=== PATIENT | male | born 1985 | race Caucasian/White ===

== ENCOUNTER 2024-09-02 14:22 | Outpatient (CLI) | payer OTHER, SELFPAY ==
--- NOTE | ~2024-09-02 | MR_ITS ---
MRI of the lumbar spine Clinical History: Back pain Technique: Axial T2-weighted images, and sagittal T1-weighted, T2-weighted, and and T2 fat-sat images were acquired. Findings: There bilateral L5 pars interarticularis defects. No subluxation evident. No acute fracture seen. No bone marrow signal abnormality seen. At L1-L2, L2-L3, L3-L4, L4-L5, intervertebral discs maintain normal signal and position. No disc bulg e or herniation at these levels. There are minimal facet joint degenerative changes. No spinal canal stenosis or neural foraminal narrowing at these levels. At L5-S1, there is minimal disc desiccation without disc bulge or herniation. No spinal canal stenosi s or left neural foraminal narrowing. There is mild to moderate right neural foraminal narrowing. Impression: Bilateral L5 pars interarticularis defects, without subluxation. Mild to moderate right neural foraminal narrowing at L5-S1. Reviewed, dictated and finalized at [facility]. Impression: Bilateral L5 pars interarticularis defects, without subluxation. Mild to moderate right neural foraminal narrowing at L5-S1.
== END 2024-09-02 14:23 | disposition home or self-care (01) ==
LOC: MICIMG 14:24
PROVIDERS: PCP Nurse Practitioner Family; Visit Provider Nurse Practitioner Family
DX: M43.06 Spondylolysis, lumbar region (principal); M48.07 Spinal stenosis, lumbosacral region
CPT/HCPCS: 72148

== ENCOUNTER 2025-02-27 12:09 | Emergency (ER) | payer OTHER, SELFPAY ==
--- OUTSIDE RECORDS SUMMARY | 2025-02-27 12:13 | XMS_ITS | Clinical Summary ---
Author Organization 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 05/08/2023 Annual physical exam 05/02/2022 Acute non-recurrent maxillary sinusitis 05/02/19 Immunizations Immunization Administration Dates Next Due Anthrax 07/22/2008, 8,12/03/2007,11/17 H1N1 Inj Preservative Free 09/03/2009 Hep A, Adult 08/24/2015, 5,04/25/2014,02/04,01/04/2006 Hep B Vaccine 09/22/2007,02/04/2006,01/04/2006 Influenza, Unspecified 03/20/2023,2020,02/07/2020,01/31,03/08/2018,02/02/2017,02/04/2016 ,01/16/2014,01/31/2013,01/12/2012,03/01,02/04/2010,12/23/2007, 8,02/04/2006 Meningococcal MCV4P (Menactra) 12/27/2005 Pfizer SARS-CoV-2 Monovalent Vaccination (12+ Yrs) PURPLE 02/13/2021,01/16/2021 Polio, Unspecified 12/27/2005 Smallpox 11/18/2007 Tdap 03/08/2018,12/27/2005,12/22/2005 Typhoid Inactivated 02/04/2010,06/08/2007 Surgical History Surgery Date Site/Laterality Comments WISDOM TOOTH EXTRACTION Medical History Medical History Date Comments Rotator cuff tear, right Family History Medical History Relation Name Comments Coronary artery disease Father Sonu Garcia Heart attack Father Sonu Garcia Hypertension Father Sonu Garcia Coronary artery disease Father's Brother Relation Name Status Comments Father Sonu Garcia Alive Father's Brother Alive Mother Alive Sister Alive Social History Tobacco Use Types Packs/Day Years Used Date Smoking Tobacco: Never Cigarettes Smokeless Tobacco: Never Tobacco Cessation:Counseling Given: Not Answered PHQ-2 Answer Date Recorded PHQ-2 Total Score (If total score is 3 or more points, staff should administer the PHQ-9) 0 05/08/2023 Sex and Gender Information Value Date Recorded Sex Assigned at Not on file Legal Sex Male 2:44 PM 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 Gender Identity Male 06/20/2022 11:15 AM CDT Sexual Orientation Straight 06/20/2022 11 :15 AM CDT 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 Not on file Not on file [employer] Not on file Not on file Not on file Last Filed Vital Signs Vital Sign Reading Time Taken Comments Blood Pressure 92/60 05/06/2024 10:54 AM [employer]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 Pulse 66 05/06/2024 10:54 AM 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 Temperature - - Respiratory Rate - - Oxygen Saturation 99% 05/06/2024 10:54 AM 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 Inhaled Oxygen Concentration - - Weight 70.3 kg (155 lb) 05/06/2024 10:54 AM 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 Height 170.2 cm (5' 7.01) 05/06/2024 10:[address] Body Mass Index 24.27 05/06/2024 10:54 AM T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 Plan of Treatment Health Maintenance Due Date Last Done Comments HPV Vaccines (1 - 3-dose SCDM series) 11/20/2011 Depression Screening 05/08/2024 05/08/2023 Covid-19 Vaccine (3 - season) 2024 02/13/2021, 01/16/2021 Influenza Vaccine (#1) 2024 , 03/20/2023, 01/16/2021, Additional history exists Regular Well Visit/Exam 18-64 05/06/2025 05/06/2024, 05/08/2023, 05/02/2022 DTaP/Tdap/Td Vaccine (4 - Td or Tdap) 03/08/2028 03/08/2018, 12/27/2005, 12/22/2005 Hepatitis B Screening Completed 09/22/2007 , 02/04/2006, 01/04/2006 Hepatitis C Screening Completed 05/06/2024 Pneumococcal vaccine <65 Aged Out No longer eligible based on patient's age to complete this topic Varicella Vaccines Discontinued Procedures Procedure Name Priority Date/Time Associated Diagnosis Comments HEPATITIS C ANTIBODY Routine 05/06/2024 11:23 AM [employer]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 Need for hepatitis C screening test from Last 3 Months or Most Recently Relevant to Health Maintenance Results * Hepatitis C antibody Blood (05/06/2024 11:23 AM T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) Hep C Ab Nonreactive Nonreactive Comment: Interpretive Data Nonreactive: Antibodies to HCV not detected. Does NOT exclude the possibility of recent exposure to HCV. Equivocal: Equivocal for HCV antibodies. Supplemental molecular testing will be automatically performed to determine infection status in accordance with current CDC screening recommendations. Reactive: Positive for HCV antibodies. This may represent current or past HCV infection. Supplemental molecular testing will be automatically performed to determine current infection status in accordance with current CDC screening recommendations. Interpretive data was last revised on 2019. Blood 05/06/2024 11:2 3 AM T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 05/06/2024 3:44 PM T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 us Nathan Jones MD LAB MICROBIOLOGY - GENER AL ORDERABLES Final Result [facility] [address] Department [place] [address] from Last 3 Months or Most Recently Relevant to Health Maintenance Insurance [facility] CHOICE PLUS [facility] HMO/PPO Address: [address] [address] [place] [address] Care Teams Making Machine Catcher Relationship Specialty Start Date End Date Nathan Jones MD [address] [address] PCP - General Internal Medicine 04/12/22
[2025-02-27 12:17] VITALS: BP 139/82; PULSE 88; RESP 18; TEMP 36.6; O2SAT 98
--- NOTE | 2025-02-27 12:23 | ED_ITS ---
HPI - URI/Sore Throat General Chief Complaint: Upper Respiratory Infection Stated Complaint: Sore throat / Cough Time Seen by Provider: 02/27/25 12:23 Source: patient and RN notes reviewed Mode of arrival: ambulatory Limitations: no limitations History of Present Illness HPI Narrative: 39 y/o male presented for cough, nasal congestion and drainage, and sore throat. Onset 3 weeks. Taking mucinex and Dayquil. Denies sob, wheezing, n/v/d/f/c. MD elicited complaint: cough Related Data Home Medications ?Medication ?Instructions ?Recorded ?Confirmed ?Last Taken ?Type dextroamphetamine-amphetamine 20 02/27/25 Unknown Hi story mg tablet sertraline 100 mg tablet mg 02/27/25 Unknown History Allergies Allergy/AdvReac Type Severity Reaction Status Date / Time No Known Allergies Allergy Verified 02/27/25 12:16 Review of Systems Review of Systems: CONSTITUTIONAL: denies malaise, body aches, chills, sweats, fever EYES: Denies visual changes, redness, or discharge ENT: Reports rhinorrhea, congestion, sinus pain, sore throat CARDIOVASCULAR: Denies chest pain, palpitations, edema RESPIRATORY: Reports cough, post nasal drainage. Denies dyspnea GASTROINTESTINAL: Denies abdominal pain, nausea, vomiting, diarrhea SKIN: Denies rash or itching NEUROLOGIC: Denies headache Exam Narrative: GENERAL: mildly ill-appearing, nontoxic no acute distress. EYES: conjunctivae clear ENT: Mucous membranes moist. nasal congestion noted. TM pearly holloway with dull light reflex bilaterally; no tragal tenderness. Oropharynx erythematous without lesions or exudate, no drooling, no hoarseness, no trismus, uvula midline. No tripod positioning, muffled voice, soft palate or pharyngeal wall bulging NECK: Supple. No lymphadenopathy CHEST: Clear to auscultation, breath sounds equal. HEART: Regular rate and rhythm. No murmur heard. SKIN: Warm, dry, no rash. NEURO: Alert and oriented x3. PSYCH: Normal mood and affect Course Course Emergency Course: Patient is aware of diagnosis, understands and agrees to treatment plan. Anticipatory guidance given. Patient agrees to follow-up as directed and is aware of reasons to seek care at the emergency department. Portions of this record may have been created with voice recognition software Level of Care: Express Care Visit Vital Signs Vital signs: Vital Signs Temperature 97.9 F 02/27/25 12:17 Pulse Rate 88 02/27/25 12:17 Respiratory Rate 18 02/27/25 12:17 Blood Pressure 139/82 02/27/25 12:17 Pulse Oximetry 98 02/27/25 12:17 Oxygen Delivery Room Air 02/27/25 12:17 Temperature 97.9 F 02/27/25 12:17 Pulse Rate 88 02/27/25 12:17 Respiratory Rate 18 02/27/25 12:17 Blood Pressure 139/82 02/27/25 12:17 Pulse Oximetry 98 02/27/25 12:17 Oxygen Delivery Room Air 02/27/25 12:17 reviewed MDM - URI/Sore Throat MDM Narrative Medical decision making narrative: Discussed physical exam findings c/w URI and reviewed RX. Advised supportive measures and signs/symptoms to go to the ER. Pt is appropriate for outpt treatment and f/u. Differential Diagnosis Differential diagnosis: Likely upper respiratory infection, sinusitis and viral infection Discharge Plan Discharge Clinical Impression: Sinusitis Patient Disposition: Home Condition: Stable Instructions: Antibiotic Form, Rhinosinusitis (ED) Additional Instructions: Take antibiotic as directed Recommend Flonase spray and Zyrtec (or Claritin/Shelly) over the counter Cough syrup (Delsym) may cause drowsiness; avoid driving or take it at night time. Tylenol 1000mg every 8 hours as needed for pain Symptomatic treatment includes: rest, fluids, and increase humidity of the air at home. Follow up with your primary care provider in 1 week. Go to the ER for worsening symptoms or concerns. Patient Language: Latvian Prescriptions: New benzonatate 200 mg capsule 200 mg PO TID PRN (Reason: cough) Qty: 20 0RF methylprednisolone [Medrol (Charlie)] 4 mg tablets,dose pack See Rx Instructions .ROUTE .COMPLEX Qty: 21 0RF Rx Instructions: orally per package directions amoxicillin-pot clavulanate 875-125 mg tablet 1 tablet PO Q12H 7 Days Qty: 14 0RF No Action sertraline 100 mg tablet dextroamphetamine-amphetamine 20 mg tablet Follow-up/Referrals: PHYSICIAN,[employer] ADDED ASSESSOR [Primary Care Provider, Internal Medicine] Time of Disposition: 12:25
== END 2025-02-27 12:27 | disposition home or self-care (01) ==
PROVIDERS: Emergency Provider Nurse Practitioner Family
DX: J32.9 Chronic sinusitis, unspecified (principal)
CPT/HCPCS: 99213; G0463